=== PATIENT | female | born 1980 | race Two or more races ===

== ENCOUNTER 2019-09-22 20:18 | Emergency (ER) | payer MEDICAID ==
[~2019-09-22] VITALS: Ht 172.7 cm; Wt 60.0 kg
[2019-09-22 22:19] VITALS: BP 146/82
[2019-09-22] MEDS ORDERED: ONDANSETRON 4MG ODT PO ONE (22:30)
== END 2019-09-23 01:23 | disposition home or self-care (01) ==
LOC: ER 20:18
DX: F10.129 Alcohol abuse with intoxication, unspecified (principal); R11.2 Nausea with vomiting, unspecified; Y90.9 Presence of alcohol in blood, level not specified
CPT/HCPCS: 99283; Q0162